=== PATIENT | female | born 1985 | race Caucasian/White ===

== ENCOUNTER → 2020-04-17 15:41 | Outpatient (BNVA) | payer OTHER, SELFPAY | PROVIDERS: PCP Internal Medicine; Visit Provider Advanced Practice Midwife | DX: N64.4 Mastodynia (principal) ==

== ENCOUNTER 2020-04-19 13:30 | Outpatient (REF) | payer OTHER, SELFPAY ==
--- NOTE | 2020-04-19 13:40 | MM_ITS ---
EXAMINATION: MM DIAGNOSTIC DIGITAL BREAST TOMOSYNTHESIS, BILATERAL US DIAGNOSTIC ULTRASOUND BREAST, RIGHT CLINICAL INFORMATION: 35-year-old with pain right breast on and off for 2 months. Pea-size nodule noted anterior upper outer right breast. No prior mammography. No family history breast cancer. The lifetime risk of breast cancer based on the Tyrer-Cuzick Model is 7%. COMPARISON: Report ultrasound left breast 07/11/2005. TECHNIQUE: Digital breast tomosynthesis is performed in both the craniocaudal and mediolateral oblique views along with computer-aided detection (CAD). Synthesized 2D images are generated from the tomosynthesis. Ultrasound right breast is targeted to the 9:00 through 12:00 position. Additional targeting to the area of palpable concern also performed. Patient is able to point to the area of concern at time of imaging. Grayscale imaging and color Doppler are performed without and with harmonics. FINDINGS: There are scattered areas of fibroglandular density (ACR BI-RADS breast composition Category b). There are no significant masses, abnormal calcifications, or other abnormalities. There is no skin thickening or coarsening of the Ermias's ligaments. The axilla and skin contours are unremarkable. Ultrasound right breast demonstrates no cystic or solid mass, architectural abnormality, or focal duct ectasia. There is no skin thickening or edema tracking in soft tissue planes. Results are discussed with the patient at time of visit. If clinically indicated, further evaluation may be considered with surgical consult. Decision to proceed with biopsy should be based on clinical grounds and degree of clinical concern. MM/MM diagnostic mammo BI IMPRESSION: 1. No mammographic evidence of malignancy or inflammatory changes. 2. Unremarkable targeted right breast ultrasound.. ASSESSMENT: BI-RADS 1: Negative RECOMMENDATION: 1. Patient should be managed based on the clinical impression. If clinically indicated, further evaluation may be considered with surgical consult. Decision to proceed with biopsy should be based on clinical grounds and degree of clinical concern. 2. Otherwise, routine annual screening mammography, by age 40, or earlier as clinical risk factors warrant. This patient's information was entered into a reminder system with a target due date for their next mammogram.
== END 2020-04-19 13:31 | disposition home or self-care (01) ==
LOC: HO.MAMMO 13:30
PROVIDERS: PCP Internal Medicine; Visit Provider Advanced Practice Midwife
DX: N63.0 Unspecified lump in unspecified breast (principal); N64.4 Mastodynia
CPT/HCPCS: 76642; 77066

== ENCOUNTER 2020-07-19 13:05 | Outpatient (REF) | payer OTHER, SELFPAY ==
[2020-07-20 09:54] LABS: BV Int Neg Control Negative (Negative); BV Int Pos Control Positive (Positive)
[2020-07-20 10:14] LABS: CT PCR NOT DETECTED (Not Detect.); NG PCR NOT DETECTED (Not Detect.)
[2020-07-22 06:42] LABS: HPV mRNA E6/E7 rflx Not Detected (Not Detected)
== END 2020-07-19 13:06 | disposition home or self-care (01) ==
LOC: HO.LAB 13:05
PROVIDERS: PCP Internal Medicine; Visit Provider Advanced Practice Midwife
DX: Z01.419 Encounter for gynecological examination (general) (routine) without abnormal findings (principal); N93.9 Abnormal uterine and vaginal bleeding, unspecified; Z20.2 Contact with and (suspected) exposure to infections with a predominantly sexual mode of transmission
CPT/HCPCS: 36415; 87480; 87491; 87510; 87591; 87624; 87660; 88142; 99395

== ENCOUNTER 2020-07-25 14:57 | Outpatient (REF) | payer OTHER, SELFPAY ==
--- NOTE | ~2020-07-25 | US_ITS ---
EXAMINATION: PELVIC ULTRASOUND CLINICAL INFORMATION: Abnormal uterine vaginal bleeding COMPARISON: Previous pelvic ultrasound December [address] of the abdomen and pelvis June 2009 TECHNIQUE: Transabdominal and transvaginal pelvic ultrasound was performed. Transvaginal exam was performed for better visualization of the uterus and ovaries. FINDINGS: The uterus is anteverted and measures 7.9 x 3.9 x 5.2 cm in dimension. No focal uterine lesion is seen. Endometrial thickness is normal measuring 0.5 cm. There are nabothian cysts in the cervix. The ovaries are normal-appearing. The right ovary measures 3.9 x 2.3 x 2.1 cm and the left ovary measures 1.8 x 2 x 2.2 cm. There is no fluid in the pelvis. US/US pelvic complete IMPRESSION: Unremarkable exam.
--- NOTE | ~2020-07-25 | US_ITS ---
EXAMINATION: PELVIC ULTRASOUND CLINICAL INFORMATION: Abnormal uterine vaginal bleeding COMPARISON: Previous pelvic ultrasound December [address] of the abdomen and pelvis June 2009 TECHNIQUE: Transabdominal and transvaginal pelvic ultrasound was performed. Transvaginal exam was performed for better visualization of the uterus and ovaries. FINDINGS: The uterus is anteverted and measures 7.9 x 3.9 x 5.2 cm in dimension. No focal uterine lesion is seen. Endometrial thickness is normal measuring 0.5 cm. There are nabothian cysts in the cervix. The ovaries are normal-appearing. The right ovary measures 3.9 x 2.3 x 2.1 cm and the left ovary measures 1.8 x 2 x 2.2 cm. There is no fluid in the pelvis. US/US transvaginal IMPRESSION: Unremarkable exam.
[2020-07-25 16:53] LABS: Hematocrit 41.1 % (37-47); Hemoglobin 13.1 g/dl (12.0-16.0); Mean Corpuscular HGB Conc 31.9 g/dl (31.0-35.0); Mean Corpuscular Volume 100.2 fL (80-98); Mean Platelet Volume 10.8 fL (9.4-12.3); Platelet Count 445 X10*3/uL (160-400); Red Cell Distribution Width 13.3 % (11.0-16.0); White Blood Count 10.2 X10*3/uL (4.8-10.8)
[2020-07-25 17:49] LABS: Thyroid Stimulating Hormone 0.41 uIU/mL (0.32-4.0)
== END 2020-07-25 14:58 | disposition home or self-care (01) ==
LOC: HO.US 14:57
PROVIDERS: PCP Internal Medicine; Visit Provider Advanced Practice Midwife
DX: N93.9 Abnormal uterine and vaginal bleeding, unspecified (principal); N92.1 Excessive and frequent menstruation with irregular cycle
CPT/HCPCS: 36415; 76830; 76856; 84443; 85027

== ENCOUNTER → 2020-08-08 15:31 | Outpatient (BNVA) | payer OTHER, SELFPAY | PROVIDERS: PCP Internal Medicine; Visit Provider Advanced Practice Midwife ==

== ENCOUNTER 2020-08-14 15:10 | Outpatient (REF) | payer OTHER, SELFPAY | END 2020-08-14 15:11 | disposition home or self-care (01) | LOC: HO.LAB 15:10 | PROVIDERS: PCP Internal Medicine; Visit Provider Advanced Practice Midwife | DX: N93.9 Abnormal uterine and vaginal bleeding, unspecified (principal); R35.0 Frequency of micturition | CPT/HCPCS: 58100; 81025; 87086; 88305 ==

== ENCOUNTER → 2020-08-28 15:22 | Outpatient (BNVA) | payer OTHER, SELFPAY | PROVIDERS: PCP Internal Medicine; Visit Provider Advanced Practice Midwife ==

== ENCOUNTER → 2020-09-04 09:50 | Outpatient (BNVA) | payer OTHER, SELFPAY | PROVIDERS: PCP Internal Medicine; Visit Provider Obstetrics & Gynecology ==

== ENCOUNTER → 2020-09-18 15:41 | Outpatient (BNVA) | payer OTHER, SELFPAY | PROVIDERS: PCP Internal Medicine; Visit Provider Obstetrics & Gynecology ==

== ENCOUNTER 2020-09-21 06:11 | Day surgery (SDC) | payer OTHER, SELFPAY ==
[2020-09-13 19:14] VITALS: BMI 27.4
--- NOTE | 2020-09-20 09:00 | HO.ANESPROP2 ---
Documented by User: Kateryna Brand 09/20/20 09:01 HPI - Anesthesia Eval Consult details Narrative: 35yo F for D&C Hysteroscopy with poss myosure and Novasure prn opioids PMFSH Active Problems Active Problems: All Active Problems (Updated 09/13/20 @ 19:13 by Diana Stern RN) Breast pain, right (Acute) Breast lump (Acute) Encounter to discuss test results (Acute) Abnormal uterine bleeding (Acute) Past Medical History Medical History Anxiety Chronic pelvic pain in female GAVI III (cervical intraepithelial neoplasia grade III) with severe dysplasia Lower back pain Menorrhagia Migraine Pelvic fracture Traumatic brain injury Family History Family History Father HTN (hypertension) Surgical History Surgical History H/O LEEP H/O splenectomy History of 3 sections Hx of cholecystectomy Social History Social History Alcohol intake: current Alcohol intake frequency: holidays/special occasions only Smoking Status: Never smoker Second Hand Smoke Exposure: No Use of substances other than those prescribed or required for medical reasons: No Are you DNR?: No Advance Directives: No Advance Directives Information Provided: No Advance Directives on File: No Recently lost weight without trying: No Nutrition Risks: No Nutritional Risk Patient : No Gender identity: female Meds Allergies Allergy/AdvReac Type Severity Reaction Status Date / Time diclofenac Allergy Unknown stomach Verified 09/21/20 06:37 pains Exam Exam Date and Time: September 20, 2020 0900 Height,Weight and Vital Signs: Height 5 ft 3 in Weight 70.307 kg Pertinent Lab Results Pertinent Lab Results: Laboratory Tests 07/25/20 16:07 WBC 10.2 Hgb 13.1 Hct 41.1 Plt Count 445 H Assessment and Plan Assessment Anesthesia Assessment: Chart Reviewed Documented by User: Caitlin Singh 09/21/20 07:06 PMFSH Past Medical History Medical History Anxiety Chronic pelvic pain in female GAVI III (cervical intraepithelial neoplasia grade III) with severe dysplasia Lower back pain Menorrhagia Migraine Pelvic fracture Traumatic brain injury Family History Family History Father HTN (hypertension) Surgical History Surgical History H/O LEEP H/O splenectomy History of 3 sections Hx of cholecystectomy Social History Social History Alcohol intake: current Alcohol intake frequency: holidays/special occasions only Smoking Status: Never smoker Second Hand Smoke Exposure: No Use of substances other than those prescribed or required for medical reasons: No Are you DNR?: No Advance Directives: No Advance Directives Information Provided: No Advance Directives on File: No Recently lost weight without trying: No Nutrition Risks: No Nutritional Risk Patient : No Gender identity: female Meds Allergies Allergy/AdvReac Type Severity Reaction Status Date / Time diclofenac Allergy Unknown stomach Verified 09/21/20 06:37 pains Exam Airway Mallampati Class: II TM Dist: >3cm Neck ROM: Full Assessment and Plan Assessment Anesthesia Assessment: Anesthesia Plan Discussed and Chart Reviewed Final Anesthetic Review NPO: Yes ASA Class: II Final Preanesthetic Review: No Changes in Pt Med Stat, Meds/Allgs Chart Reviewed, Consent Obtained/Reviewed and Anes Risks/Benef Reviewed Patient Risk: Low Procedure Risk: Low Assessment/Block/Sedation in SS: Assess/Block/Sedation-SS Anesthetic Plan Anesthetic Plan: MAC: Disposition: Standard PACU
[2020-09-21] VITALS (7 sets, daily range): BP systolic 115–130; BP diastolic 70–85; PULSE 66–88; RESP 18; TEMP 36.3–36.8; O2SAT 96–100
[2020-09-21] MEDS: Lactated Ringers 1,000 ML 100 ML IVCONT (06:37)
--- NOTE | 2020-09-21 07:11 | MHC.SHP ---
Pre-Procedural Eval Section A The patient is an INPATIENT: No Changes since office visit: No Cold of Flu in the past 2 weeks, No New Medical Problems, No Changes in Medication and No Patient answered all questions The History & Physical has been completed within 30 days and I have reviewed it.: Yes Section B Chief Complaint: abnormal uterine and vaginal bleeding Allergies: Allergies Allergy/AdvReac Type Severity Reaction Status Date / Time diclofenac Allergy Unknown stomach Verified 09/21/20 06:37 pains Plan I have reviewed the history and physical and performed a pertinent physical examination on my patient. No changes have occurred unless specified.
[2020-09-21 07:14] LABS: UPreg QC Valid YES; Urine Pregnancy NEGATIVE (NEGATIVE)
--- NOTE | 2020-09-21 07:14 | W.PM.OPN ---
Operative Note Operative Note Date of Service: 09/21/20 Narrative: Pre-Op Diagnosis: Abnormal uterine bleeding Post-Op Diagnosis: abnormal uterine bleeding Procedures performed: hysteroscopy dilation and curettage, novasure ablation Project Management Instructor: none Specimens: endometrial curettings Complications: none Disposition: PACU Ms. Kumar Almendarez is a 35 year old with menorrhagia. Medical management was declined as she has failed multiple methods of hormonal contraceptives in the past. An endometrial biopsy was performed, which showed late secretory endometrium with stromal breakdown; negative for atypia, hyperplasia or malignancy.. An ultrasound was performed and was unremarkable. The patient was counseled that endometrial ablation is not indicated if she desires future fertility. The patient expressed understanding of this and stated that her family planning is complete and her current form of control is vasectomy. Surgical Risks: The patient was informed of the risks and benefits of the procedure. Risks included but were not limited to bleeding, infection, injury to the vulva, vagina, or cervix, and uterine perforation. The patient was also informed of the risk that the Novasure ablation may not result in full resolution of symptoms. The patient expressed understanding of the risks involved, all questions were answered, and she consented to the procedure. The patient was taken to the operating room where a time out was performed to confirm correct patient and correct procedure. MAC was established. The patient was then positioned on the operating table in the dorsal lithotomy position and her legs supported using stirrups. All pressure points were padded and a warm blanket was placed to maintain control of core body temperature. The patient was then prepped and draped in the usual sterile fashion. A bimanual exam was performed and the uterus was found to be approximately 7wk size and anteverted. The adnexa were palpated bilaterally and there were no palpable masses. The bladder was emptied with a straight catheter and 300mL of urine was obtained. A bivalve speculum was inserted into the vagina. The anterior lip of the cervix was visualized and grasped using a single tooth tenaculum. 6mL of 1% lidocaine was injected at the 4 and 8 o?clock positions each as a paracervical block for a total of 12mL. The hysteroscope was introduced through the cervix using hydrodilation and advanced to the fundus of the uterus under direct visualization using distending media. Inspection of the entire uterine cavity was performed. There were no abnormalities noted. The ostia were visualized bilaterally. The hysteroscope was then removed and a sharp curettage was performed in 360 degrees. Endometrial curettings were sent to pathology. The Novasure SureSound device was then inserted through the cervix. The malecot was then deployed and the device was anchored on the internal os. The probe was then extended to the fundus and the uterine cavity was measured and found to be 5cm. The SureSound was then removed and the Novasure was introduced through the cervix and advanced to the fundus. The Novasure was released and rotated from side to side in order to measure the cavity width; it was found to be 4.5cm. The test was performed using the NovaSure and there was no leakage of gas noted. The NovaSure was then set and deployed. It was set to a power of 124W and a burn time of 1:02. The NovaSure was then fully retracted and the hysteroscope reintroduced through the cervix and global ablation to the entire cavity was noted. The procedure was felt to be successful. The hysteroscope was then removed and the single tooth tenaculum was removed from the anterior lip of the cervix. Good hemostasis was confirmed. All needle, sponge, and instrument counts were noted to be correct x2 at the end of the procedure. The patient was transferred to the recovery room in stable condition.
--- NOTE | 2020-09-21 08:10 | PC.NURSE ---
PATIENT REPORTS MENSTRUAL ABDOMINAL PAINS AT THIS TIME. PT OFFERED TYLENOL AND OXYCODONE. ABDOMEN SOFT NO VAGINAL BLEEDING.
[2020-09-21] MEDS: Acetaminophen 325 MG TABLET 650 MG PO (08:12)
[2020-09-21] MEDS: oxyCODONE HCl Immed Release 5 MG TABLET PO (08:13)
== END 2020-09-21 09:15 | disposition home or self-care (01) ==
LOC: HO.SSS 06:11
PROVIDERS: PCP Internal Medicine; Visit Provider Obstetrics & Gynecology
PROC: (CPT 58563; principal; 2020-09-21 07:30)
DX: N93.9 Abnormal uterine and vaginal bleeding, unspecified (principal); G89.29 Other chronic pain; R10.2 Pelvic and perineal pain; Z86.001 Personal history of in-situ neoplasm of cervix uteri; F41.9 Anxiety disorder, unspecified; Z87.820 Personal history of traumatic brain injury; Z90.49 Acquired absence of other specified parts of digestive tract; Z90.81 Acquired absence of spleen; Z88.8 Allergy status to other drugs, medicaments and biological substances
CPT/HCPCS: 58563; 81025; 88305; J1885; J2250; J2405; J3010

== ENCOUNTER → 2020-10-06 15:15 | Outpatient (BNVA) | payer OTHER, SELFPAY | PROVIDERS: PCP Internal Medicine; Visit Provider Obstetrics & Gynecology ==

== ENCOUNTER 2021-08-29 13:39 | Outpatient (REF) | payer OTHER, SELFPAY ==
[2021-08-29 17:54] LABS: CT PCR NOT DETECTED (Not Detect.); NG PCR NOT DETECTED (Not Detect.)
[2021-08-30 15:48] LABS: BV Int Neg Control Negative (Negative); BV Int Pos Control Positive (Positive)
== END 2021-08-29 13:40 | disposition home or self-care (01) ==
LOC: HO.LAB 13:39
PROVIDERS: PCP Internal Medicine; Visit Provider Advanced Practice Midwife
DX: Z01.411 Encounter for gynecological examination (general) (routine) with abnormal findings (principal); Z20.2 Contact with and (suspected) exposure to infections with a predominantly sexual mode of transmission; R10.2 Pelvic and perineal pain; N94.6 Dysmenorrhea, unspecified
CPT/HCPCS: 87480; 87491; 87510; 87591; 87660

== ENCOUNTER 2021-09-11 12:44 | Outpatient (REF) | payer OTHER, SELFPAY ==
--- NOTE | ~2021-09-11 | US_ITS ---
EXAMINATION: US PELVIS CLINICAL INFORMATION: Abnormal uterine and vaginal bleeding. LMP 08/15/2021. COMPARISON: 07/23/2020. TECHNIQUE: Ultrasound of the pelvis is performed using both transabdominal and transvaginal transducers along with Doppler. Transvaginal imaging is performed due to inadequate visualization transabdominally. FINDINGS: Uterus: The uterus is anteverted and measures 7.2 x 3.8 x 4.9 cm. There is a 1.5 x 1.6 x 1.4 cm posterior uterine intramural fibroid. The double wall endometrial thickness is 5 mm. Adnexa: Both ovaries are visualized. There is normal color flow to the adnexa. There is no ovarian torsion. There is no pelvic ascites or fluid collection. Right ovary measures 1.7 x 1.3 x 2.2 cm. Left ovary measures 1.6 x 1.6 x 1.6 cm. US/US pelvic and transvaginal IMPRESSION: There is a 1.6 cm intramural uterine fibroid. The endometrium measures up to 5 mm in maximum thickness which is within normal limits for a premenopausal patient. No discrete focal abnormalities are identified.
== END 2021-09-11 12:45 | disposition home or self-care (01) ==
LOC: HO.HMGCX 12:44
PROVIDERS: Visit Provider Advanced Practice Midwife
DX: N93.9 Abnormal uterine and vaginal bleeding, unspecified (principal)
CPT/HCPCS: 76830; 76856

== ENCOUNTER 2021-10-05 15:47 | Outpatient (REF) | payer OTHER, SELFPAY ==
[2021-10-05 17:00] LABS: Hematocrit 44.8 % (37.0-47.0); Hemoglobin 14.7 g/dl (12.0-16.0); Mean Corpuscular HGB Conc 32.8 g/dl (31.0-35.0); Mean Corpuscular Hemoglobin 32.5 pg (27.0-33.0); Mean Corpuscular Volume 99.1 fL (80.0-98.0); Mean Platelet Volume 10.3 fL (9.4-12.3); Platelet Count 418 X10*3/uL (160-400); Red Blood Count 4.52 X10*6/uL (4.20-5.50); Red Cell Distribution Width 12.8 % (11.0-16.0)
[2021-10-05 17:39] LABS: Thyroid Stimulating Hormone 0.27 uIU/mL (0.32-4.0)
== END 2021-10-05 15:48 | disposition home or self-care (01) ==
LOC: HO.LAB 15:47
PROVIDERS: PCP Internal Medicine; Visit Provider Advanced Practice Midwife
DX: N92.1 Excessive and frequent menstruation with irregular cycle (principal); N93.9 Abnormal uterine and vaginal bleeding, unspecified; Z71.2 Person consulting for explanation of examination or test findings
CPT/HCPCS: 36415; 58100; 84443; 85027

== ENCOUNTER 2021-10-25 16:20 | Outpatient (REF) | payer OTHER, SELFPAY ==
[2021-10-25 17:38] LABS: Free T4 (Free Thyroxine) 1.07 ng/dL (0.71-1.85)
[2021-10-27 12:01] LABS: Triiodothyronine T3 Free 3.4 pg/mL (2.3-4.2)
== END 2021-10-25 16:21 | disposition home or self-care (01) ==
LOC: HO.LAB 16:20
PROVIDERS: PCP Internal Medicine; Visit Provider Obstetrics & Gynecology
DX: R94.6 Abnormal results of thyroid function studies (principal)
CPT/HCPCS: 36415; 84439; 84481

== ENCOUNTER 2021-11-29 15:45 | Outpatient (REF) | payer OTHER, SELFPAY | END 2021-11-29 15:46 | disposition home or self-care (01) | LOC: HO.LAB 15:45 | PROVIDERS: PCP Internal Medicine; Visit Provider Obstetrics & Gynecology | DX: N93.9 Abnormal uterine and vaginal bleeding, unspecified (principal) | CPT/HCPCS: 58100; 81025; 88305 ==

== ENCOUNTER → 2022-08-21 13:26 | Outpatient (BNVA) | payer OTHER, SELFPAY | PROVIDERS: Visit Provider Obstetrics & Gynecology | DX: Z13.89 Encounter for screening for other disorder (principal) ==

== ENCOUNTER → 2022-08-27 12:52 | Outpatient (BNVA) | payer OTHER, SELFPAY | PROVIDERS: Visit Provider Surgery | DX: Z13.89 Encounter for screening for other disorder (principal) ==

== ENCOUNTER 2022-08-30 07:40 | Outpatient (REF) | payer OTHER, SELFPAY ==
--- NOTE | ~2022-08-30 | MM_ITS ---
PROCEDURE: US GUIDED BREAST BIOPSY, RIGHT CLINICAL INFORMATION: Indeterminate hypoechoic lesion lateral aspect of the right breast 9:00 position 4 cm from the nipple.. COMPARISON: August 19, 2022 and April 19, 2020 PROCEDURAL DETAILS: The details of the procedure, as well as the risks, benefits, and alternatives to the procedure were explained to the patient in detail and all of her questions were answered, after which written informed consent was obtained. Site and side were confirmed. Prior to the procedure, sonography revealed a hypoechoic mass 9:00 position 4 cm from nipple.. A time-out was performed, the lesion intended for biopsy was targeted, and the skin of the right breast was then prepped and draped in the usual sterile fashion. Using sonographic guidance, sterile technique, and 1% lidocaine without epinephrine for local anesthesia, multiple automated core biopsies were obtained through the targeted area with a 14G spring loaded Achieve core biopsy device. There was real-time confirmation of appropriate needle passage. Sampling was documented. After a few samples the lesion could no longer be seen and may be cystic in nature. At the completion of tissue sampling, a single coil-shaped metallic clip was deposited at the biopsy site. There was no evidence of immediate complication. SPECIMEN: An appropriate sample was obtained. DIGITAL POST-PROCEDURE MAMMOGRAPHY: Breast density: The tissue is heterogeneously dense which may obscure small masses. BI-RADS version 5, category C. There are no new mammographic findings demonstrated. The postprocedure 2-view direct digital mammogram reveals satisfactory positioning of the biopsy clip. The patient tolerated the procedure well and, after assuring adequate hemostasis, was discharged in good condition after reviewing postbiopsy breast care instructions. Final pathology results are pending. MM/MM diagnostic mammo unilat RT IMPRESSION: 1. No immediate complication from ultrasound-guided percutaneous biopsy right breast. 2. Ultrasound was used to localize and guide marker clip placement. 3. The 2-view direct digital postprocedure mammogram reveals satisfactory positioning of the biopsy clip. 4. Final pathology results are pending. A separate report with final recommendations will be issued once these results are made available.
[2022-08-30] MEDS: Lidocaine HCl 1 % 20 ML VIAL 9 ML SUBCUT (10:28)
== END 2022-08-30 07:41 | disposition home or self-care (01) ==
LOC: HO.MAMMO 07:40
PROVIDERS: Visit Provider Surgery
DX: R92.8 Other abnormal and inconclusive findings on diagnostic imaging of breast (principal)
CPT/HCPCS: 19083; 77062; 77065; 88305; A4648

== ENCOUNTER → 2022-09-06 08:40 | Outpatient (BNVA) | payer OTHER, SELFPAY | PROVIDERS: Visit Provider Surgery | DX: R92.8 Other abnormal and inconclusive findings on diagnostic imaging of breast (principal); N64.4 Mastodynia; N63.0 Unspecified lump in unspecified breast ==

== ENCOUNTER 2022-10-16 15:06 | Outpatient (REF) | payer OTHER, SELFPAY ==
[2022-10-22 07:43] LABS: HPV mRNA E6/E7 rflx Not Detected (Not Detected)
== END 2022-10-16 15:07 | disposition home or self-care (01) ==
LOC: HO.LNP 15:06
PROVIDERS: Visit Provider Advanced Practice Midwife
DX: Z01.419 Encounter for gynecological examination (general) (routine) without abnormal findings (principal); N93.9 Abnormal uterine and vaginal bleeding, unspecified; N89.8 Other specified noninflammatory disorders of vagina; N39.0 Urinary tract infection, site not specified; Z20.2 Contact with and (suspected) exposure to infections with a predominantly sexual mode of transmission
CPT/HCPCS: 81003; 87624; 88142

== ENCOUNTER 2022-10-16 15:49 | Outpatient (REF) | payer OTHER, SELFPAY | END 2022-10-16 15:50 | disposition home or self-care (01) | LOC: HO.LAB 15:49 | PROVIDERS: Visit Provider Advanced Practice Midwife | DX: Z13.89 Encounter for screening for other disorder (principal) ==

== ENCOUNTER 2022-10-17 17:25 | Outpatient (REF) | payer OTHER, SELFPAY ==
[2022-10-18 00:56] LABS: CT PCR NOT DETECTED (Not Detect.); NG PCR NOT DETECTED (Not Detect.)
[2022-10-18 09:36] LABS: BV Int Neg Control Negative (Negative); BV Int Pos Control Positive (Positive)
== END 2022-10-17 17:26 | disposition home or self-care (01) ==
LOC: HO.LNP 17:25
PROVIDERS: Visit Provider Advanced Practice Midwife
DX: Z20.2 Contact with and (suspected) exposure to infections with a predominantly sexual mode of transmission (principal); N89.8 Other specified noninflammatory disorders of vagina
CPT/HCPCS: 0353U; 87480; 87510; 87660

== ENCOUNTER 2023-03-10 12:59 | Outpatient (REF) | payer OTHER, SELFPAY ==
--- NOTE | ~2023-03-10 | MM_ITS ---
EXAMINATION: MM DIAGNOSTIC DIGITAL BREAST TOMOSYNTHESIS, RIGHT CLINICAL INFORMATION: 6 month follow-up benign biopsy slightly upper outer breast, middle one third. Pathology was fibrocystic change with apocrine metaplasia. No evidence of atypia or malignancy. COMPARISON: Mammography: 08/22/2022, 08/19/2022, 04/19/2020. ULTRASOUND: Ultrasound biopsy right 08/22/2022. Ultrasound right 08/19/2022. Ultrasound right 04/19/2020. TECHNIQUE: Digital right breast tomosynthesis is performed in both the craniocaudal and mediolateral oblique views along with computer-aided detection (CAD). Synthesized 2D images are generated from the tomosynthesis. In addition, a full-field digital right ML view was obtained. FINDINGS: There are scattered areas of fibroglandular density (ACR BI-RADS breast composition Category b). There is a coil-shaped biopsy clip in the right breast, slightly upper, outer aspect, with clip located within a small nodule which is unchanged and stable. This is benign. There are no new abnormalities in the right breast. No skin or axillary abnormalities. MM/MM tomosynthesis diagnostic RT IMPRESSION: There are no significant changes from prior study. Benign findings secondary to benign biopsy. Recommend patient return to routine annual screening mammography. ASSESSMENT: BI-RADS 2 - Benign Findings RECOMMENDATION: 1 year F/U Results were provided to the patient at time of visit by the technologist. This patient's information was entered into a reminder system with a target due date for their next mammogram.
== END 2023-03-10 13:00 | disposition home or self-care (01) ==
LOC: HO.MAMMO 12:59
PROVIDERS: PCP Internal Medicine; Visit Provider Surgery
DX: R92.8 Other abnormal and inconclusive findings on diagnostic imaging of breast (principal)
CPT/HCPCS: 77061; 77065

== ENCOUNTER → 2023-03-10 13:00 | Outpatient (BNV) | payer OTHER, SELFPAY | PROVIDERS: PCP Internal Medicine; Visit Provider Radiology Diagnostic Radiology | DX: N64.89 Other specified disorders of breast (principal) | CPT/HCPCS: 77061; 77065 ==